=== PATIENT | female | born 1945 | race Caucasian/White ===

== ENCOUNTER 2025-01-12 06:16 | Day surgery (SDC) | payer OTHER ==
[2025-01-07 14:16] VITALS: BMI 19.8
[2025-01-12] MEDS ORDERED: AFRIN NASAL MIST 15 ML BOT ONE ×2 (08:03→08:06)
[2025-01-12] MEDS ORDERED: Sevoflurane 250 ML INH ANEST BOTTLE ONE (08:10)
[2025-01-12 08:17] LABS: Hematocrit 40.4 % (34.9-44.5); Hemoglobin 13.3 g/dL (12.0-15.5)
[2025-01-12] MEDS ORDERED: hydrALAZINE 20 MG/ML VIAL ONE (08:18)
[2025-01-12 08:46] LABS: Anion Gap 11 mmol/L (10-20); BUN (Urea Nitrogen) 20 mg/dL (9.8-20.1); Calc. Creatinine Clearance 34 mL/min (70-130); Calcium 9.0 mg/dL (7.8-10.44); Carbon Dioxide 28 mmol/L (23-31); Chloride 104 mmol/L (98-107); Glucose 97 mg/dL (83-110); Potassium 3.4 mmol/L (3.5-5.1); Sodium 140 mmol/L (136-145)
[2025-01-12] MEDS ORDERED: HYDROmorphone 0.5 MG/0.5 ML SYRINGE ONE (11:07)
[2025-01-12] MEDS ORDERED: HYDROcodone/Acetaminophen 5/325 mg Tablet ONE (11:45)
== END 2025-01-12 12:40 | disposition home or self-care (01) ==
LOC: CSHSDC 06:16
PROVIDERS: ATTEND Otolaryngology Otolaryngic Allergy
PROC: 09BV8ZZ Excision of Left Ethmoid Sinus, Via Natural or Artificial Opening Endoscopic (ICD-10-PCS; principal; 2025-01-12)
PROC: 09BU8ZZ Excision of Right Ethmoid Sinus, Via Natural or Artificial Opening Endoscopic (ICD-10-PCS; 2025-01-12)
DX: J32.4 Chronic pansinusitis (principal); J33.8 Other polyp of sinus; R43.0 Anosmia; I10 Essential (primary) hypertension; Z87.891 Personal history of nicotine dependence; Z79.899 Other long term (current) drug therapy; Z88.8 Allergy status to other drugs, medicaments and biological substances; Z88.1 Allergy status to other antibiotic agents
CPT/HCPCS: 30999; 31259; 31267; 31276; 61782; 80048; 85014; 85018; J0360; J1171; J3301; 36415; 88305; 88311; 88312; J0169